=== PATIENT | male | born 1960 | race Two or more races ===

== ENCOUNTER 2019-03-05 02:09 | Inpatient (IN) | payer OTHER ==
[~2019-03-05] VITALS: Ht 172.7 cm; Wt 81.6 kg
[~2019-03-05 02:09] MED LIST: AVAPRO300 MG; AVAPRO300 MG PO
[2019-03-05] MEDS ORDERED: NORVASC5 MG PO (02:37)
[2019-03-05] MEDS ORDERED: AVAPRO150 MG PO (02:37)
== END 2019-03-08 08:05 | disposition home or self-care (01) | DRG 440 ==
LOC: ER 02:09 → MEDI 06:23
PROVIDERS: ADMIT Internal Medicine Cardiovascular Disease
PROC: BW40ZZZ Ultrasonography of Abdomen (ICD-10-PCS; principal; 2019-03-05)
DX: K85.80 Other acute pancreatitis without necrosis or infection (principal); E86.0 Dehydration; I10 Essential (primary) hypertension; K85.20 Alcohol induced acute pancreatitis without necrosis or infection; E87.8 Other disorders of electrolyte and fluid balance, not elsewhere classified

== ENCOUNTER 2019-03-14 08:02 | Outpatient (CLI) | payer OTHER ==
[~2019-03-14 08:02] MED LIST changes: +AVAPRO150 MG PO; +NORVASC5 MG PO
== END 2019-03-14 08:05 | disposition home or self-care (01) ==
LOC: TOM 08:02
DX: K85.10 Biliary acute pancreatitis without necrosis or infection (principal)